=== PATIENT | female | born 2000 | race Caucasian/White ===

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

== ENCOUNTER → 2021-04-06 15:40 | Outpatient (CLI) | payer BC, SELFPAY ==
[2021-04-08 22:07] LABS: Neisseria gonorrhoeae, NAA Negative (Negative)
== END ==
PROVIDERS: Visit Provider Obstetrics & Gynecology
DX: Z20.2 Contact with and (suspected) exposure to infections with a predominantly sexual mode of transmission (principal)
CPT/HCPCS: 87491; 87591

== ENCOUNTER 2021-05-05 16:03 | Emergency (ER) | payer BC, SELFPAY ==
[2021-05-05 17:14] VITALS: BP 117/70; PULSE 87; RESP 18; TEMP 37; O2SAT 98; BMI 25.7
--- NOTE | 2021-05-05 17:25 | HMH.EDUTC ---
[facility] [place] Disposition Clinical Impression: Right flank discomfort Disposition: Home, Self-Care Condition on Discharge: Good Instructions: Low Back Pain, DI for Low Back Pain, DI for Flank Pain Additional Instructions: Make sure to drink plenty of water Follow up with OBGYN for further treatment and evaluation for pain with sex Return if needed Straight to ER if any life threatening symptoms Referrals: Radha Mayes APRN [Primary Care Provider] - As needed Olivia Aiken MD [Staff Physician] - As needed Time of Disposition: 17:33 Medical Decision Making - Spencer Inquiry Pt receiving controlled substance: No Spencer was queried for this patient: No Vital Signs: 05/05/21 17:14 Temperature 98.6 F Temperature Source Oral Pulse Rate [Left] 87 Respiratory Rate 18 Blood Pressure [Right Arm] 117/70 Blood Pressure Mean [Right Arm] 85 02 Sat by Pulse Oximetry 98 - Lab Data Lab results reviewed: Yes: I reviewed the patient's lab results. [facility] [place] HPI - General Stated complaint: back,R riki pain possible kidney infection Time Seen by Provider: 05/05/21 17:25 Mode of Arrival: Ambulatory Source of Information: Patient Limitations: No Limitations Description of Symptoms (Recalled from Triage Doc. by RN): pt c/o R sided back pain while having sex that is sharp in nature. HEENT Symptoms (Recalled from RN notes): No Resp Symptoms (Recalled from RN notes): No Skin Symptoms (Recalled from RN notes): No MS Symptoms (Recalled from RN notes): Yes Functional Status (Recalled from RN notes): wnl - History of Present Illness Provider Complaint: Patient states that [place] and she has been having pain at times on her right lower back/flank area with sex States that she has not had any abdnormal bleeding, denies fever, denies chills States that she wanted to get her urine checked to make sure she didnt have kidney infections - Related Data Home Medications Medication Instructions Recorded Confirmed No Known Home Medications 01/25/21 04/06/21 Allergies Allergy/AdvReac Type Severity Reaction Status Date / Time No Known Allergies Allergy Verified 04/06/21 14:25 - Worker's Comp Is this a Worker's Comp case?: No [facility] History - Hepatitis A Screen Drug use history?: No High risk sexual behaviors?: No History of sexually transmitted infection?: No Currently employed?: No Childcare worker?: No Do you have indoor plumbing?: Yes Do you have electricity?: Yes Attestation statement:: This patient has been screened for Hepatitis A risk factors. I have reviewed the patient's past medical history: Yes Laterality Cases: Bilateral: Myringotomy (Ear Tubes) Comment: 2019-T&A. 2017,2019-L. elbow - Social History Smoking Status: Never smoker Alcohol Intake: never Substance Use Type: denies use Occupational Status: student Family Hx:: Non-contributory ROS Obtained: Yes All systems reviewed & no additional complaints, Yes Systems reviewed as appropriate & no additional complaints - Constitutional Constitutional: Reports system reviewed and no additional complaints, except as docu, Denies body ache, Denies chills, Denies fever(s) - ENT Ears, Nose, Mouth, and Throat: Reports system reviewed and no additional complaints, except as docu - Cardiovascular Cardiovascular: Reports system reviewed and no additional complaints, except as docu - Respiratory Respiratory: Reports system reviewed and no additional complaints, except as docu - Gastrointestinal Gastrointestingal: Reports: system reviewed and no additional complaints, except as docu. Denies: abdominal pain - Genitourinary Female Genitourinary: Reports system reviewed and no additional complaints, except as docu, Reports painful intercourse (pain in right flank/lower back with sex ), Denies hematuria, Denies urinary frequency, Denies urinary urgency Physical Exam - General General appearance: alert, in no apparent distress - Res
[2021-05-05 17:41] LABS: Apearance,Urine Clear (Clear); Color,Urine Yellow (Yellow)
[2021-05-05 17:42] VITALS: BP 117/70; PULSE 87; RESP 18; TEMP 37
[2021-05-05 17:42] LABS: Bilirubin,Urine Negative (Negative); Blood, Urine Negative (Negative); Glucose,Urine (UA) Negative (Negative); Ketones,Urine Negative (Negative); Protein,Urine Negative (Negative); Specific Gravity, Urine 1.025 (1.005-1.030); UTC Leukocyte Esterase,Urine Negative (Negative); UTC Nitrate,Urine Negative (Negative); UTC Pregnancy Test, Urine Negative (Negative); Urobilinogen,Urine 0.2 EU/dl (0.2)
== END 2021-05-05 17:43 | disposition home or self-care (01) ==
PROVIDERS: Emergency Provider Nurse Practitioner; PCP Nurse Practitioner Family
DX: R10.31 Right lower quadrant pain (principal)
CPT/HCPCS: 81003; 81025; 99212; G0463